=== PATIENT | female | born 1975 | race Caucasian/White ===

== ENCOUNTER 2022-02-01 14:51 | Outpatient (CLI) | payer BC, MEDICAID, SELFPAY ==
--- NOTE | 2022-02-01 15:09 | MM_ITS ---
WS: [id number] Bilateral screening 3D tomosynthesis digital mammogram, 02/01/2022 Clinical Data: SCREENING Comparison: 05/17/2016. Findings: The breast parenchymal pattern shows fibroglandular tissue No spiculated masses or clustered calcific ations are seen. There are no secondary signs of carcinoma. MM/[id number] Impression: 1. Negative bilateral mammogram unchanged. 2. Recommend annual screening mammograms. BIRADS: 1-Negative FOLLOW UP: 1 Year Follow-up The CAD credit rating checker was used.
== END 2022-02-01 14:52 | disposition home or self-care (01) ==
LOC: RAD 14:58
PROVIDERS: PCP Family Medicine; Visit Provider Family Medicine
DX: Z12.31 Encounter for screening mammogram for malignant neoplasm of breast (principal)
CPT/HCPCS: 77063; 77067

== ENCOUNTER 2022-03-11 15:49 | Outpatient (CLI) | payer BC, MEDICAID, SELFPAY ==
--- NOTE | 2022-03-11 16:10 | XR_ITS ---
WS: [id number] Exam: XR lumbar spine f/e only [id number] Date/Time of Exam: 03/11/2022 4:10 PM Reason For Exam: VERTEBROGENIC LOW BACK PAIN Comparison 11/24/2014. Flexion and extension views show no evidence of subluxation or instability. Disc spaces are preserved . Posterior elements are intact. Mild spondylosis. XR/XR lumbar spine f/e only [id number] IMPRESSION: 1. No fracture or instability identified.
== END 2022-03-11 15:50 | disposition home or self-care (01) ==
LOC: RAD 15:55
PROVIDERS: PCP Family Medicine; Visit Provider Nurse Practitioner
DX: M54.51 Vertebrogenic low back pain (principal)
CPT/HCPCS: 72120

== ENCOUNTER 2022-03-26 09:46 | Outpatient (CLI) | payer BC, MEDICAID, SELFPAY ==
--- NOTE | 2022-03-26 | XR_ITS ---
WS: [id number] Exam: XR shoulder RT min 2V* [id number] Date/Time of Exam: 03/26/2022 12:00 AM Reason For Exam: RT SHOULDER PAIN The projections of the shoulder reveal no fractures, anomalies, soft tissue swelling, or calcificatio ns. There is normal bony alignment. No irregularity of the bony architecture is noted. XR/XR shoulder RT min 2V* [id number] IMPRESSION: Negative right shoulder.
--- NOTE | 2022-03-26 | XR_ITS ---
WS: [email or web address] Exam: XR cervical spine 4-5V [id number] Date/Time of Exam: 03/26/2022 12:00 AM Reason For Exam: RT SHOULDER PAIN GETTING WORSE X 4 MONTHS No fracture or dislocation noted. No flexion or extension instability. Normal paraspinal soft tissues . Disc spaces are preserved. The odontoid is intact. Normal posterior elements. XR/XR cervical spine 4-5V [id number] IMPRESSION: 1. Normal cervical spine study.
== END 2022-03-26 09:47 | disposition home or self-care (01) ==
LOC: RADOUTREAD 03-27 09:51
PROVIDERS: PCP Family Medicine; Visit Provider Family Medicine
DX: M54.12 Radiculopathy, cervical region (principal); M25.511 Pain in right shoulder
CPT/HCPCS: 72050; 73030

== ENCOUNTER 2022-05-09 19:25 | Emergency (ER) | payer BC, MEDICAID, SELFPAY ==
[2022-05-09 20:16] VITALS: PULSE 79; RESP 20; TEMP 37.2; O2SAT 99; BMI 43.7
[2022-05-09 21:42] LABS: Add Urine Culture? Yes; Add Urine Microscopic? YES; Bacteria Urine 4+ /hpf; Bilirubin Urine Neg (Negative); Blood Urine 3+ (Negative); Glucose Urine UA Norm (Normal); Ketones Urine Negative (Negative); Leukocyte Esterase Urine 2+ (Negative); Mucus Urine 1+ /hpf; Nitrate Urine Positive (Negative); Protein Urine 3+ (Negative); RBC Urine TOO NUMEROUS TO CNT /hpf (0-2); Squamous Epithelial Cell Urine 0-4 /hpf (0-5); Urine Appearance Cloudy (CLEAR); Urine Color Red (Yellow); Urobilinogen Urine Norm (Negative); WBC Urine TOO NUMEROUS TO CNT /hpf (0-5); pH Urine 6 (5-7)
[2022-05-09 21:48] LABS: Basophils # 0.1 10^3/uL (0.0-0.1); Basophils % 0.4 %; Eosinophils % 0.2 %; Hematocrit 42.1 % (37.0-47.0); Hemoglobin 14.5 g/dL (11.5-15.3); Lymphocytes # 0.9 10^3/uL (0.8-4.8); Lymphocytes % 7.2 %; Mean Corpuscular HGB Conc 34.4 g/dL (30.0-36.0); Mean Corpuscular Hemoglobin 29.6 pg (28.0-34.0); Mean Corpuscular Volume 85.9 fl (81-99); Mean Platelet Volume 10.6 fL (7.4-10.4); Monocytes # 0.5 10^3/uL (0.2-0.9); Monocytes % 4.4 %; Neutrophils # 10.77 10^3/uL (1.8-7.7); Neutrophils % 87.3 %; Nucleated Red Blood Cells % 0 %; Platelet Count 241 10^3/cmm (130-400); Red Cell Distribution Width 12.8 % (12.1-15.1); White Blood Count 12.3 10^3/uL (4.0-10.0)
[2022-05-09 22:12] LABS: Alanine Aminotransferase 9 U/L (0-33); Albumin Level 4.6 g/dL (3.5-5.2); Alkaline Phosphatase 55 IU/L (35-105); Anion Gap 15.1 (5-19); Aspartate Amino Transferase 10 U/L (0-32); Blood Urea Nitrogen 11 mg/dL (6-20); Calcium 9.7 mg/dL (8.5-10.5); Carbon Dioxide 24 mmol/L (22-29); Chloride 100 mmol/L (98-107); Glomerular Filtration Rate 90.9 mL/min (90-130); Glucose 118 mg/dL (65-115); Lipase 24 U/L (13-60); Osmolality Calculated 280 mOsm/kg (285-295); Potassium 4.1 mmol/L (3.5-5.1); Sodium 135 mmol/L (136-145); Total Bilirubin 0.5 mg/dL (0.15-1.2); Total Protein 7.6 g/dL (6.6-8.7)
--- NOTE | 2022-05-09 23:27 | ED_ITS ---
HPI - Female Genitourinary General: Chief complaint: Urogenital-Female Stated complaint: abd/back pain Time Seen by Provider: 05/09/22 23:26 History of Present Illness: Ms. Mccormick is a 46-year-old lady with history of UTIs presenting to the emergency department due to concern over UTI. She reports onset of symptoms a few days ago. Initially she noted an aching back with right greater than left as well as some dysuria. She developed hematuria which has not had before as well as nausea and vomiting. Overall course of symptoms has worsened. Intensity is moderate. No fevers. No vaginal bleeding or discharge. No other specific changes in health, exacerbating, or alleviating factors identified. Onset (ago): day(s) Location of symptoms: low back and flank Severity: moderate Quality of pain: aching Urinary symptoms: Hematuria Review of Systems General: Reports: 10 or more systems reviewed and unremarkable except in HPI and below PFSH ED PFSH: Medical History (Updated 05/21/22 @ 21:53 by Chun Navas MD) No significant past medical history Surgical History (Updated 05/21/22 @ 21:53 by Chun Navas MD) No significant past surgical history Family History (Updated 05/21/22 @ 21:53 by Chun Navas MD) Denies family history of Clotting disorder Bleeding disorder Physical Exam Const: COMMON NORMALS: alert GENERAL APPEARANCE: cooperative and well developed HENMT: COMMON NORMALS: normocephalic and atraumatic HEAD & SCALP: nor mocephalic and atraumatic Eye: COMMON NORMALS: conjunctivae normal CONJUNCTIVA: Yes conjunctivae normal SCLERA: sclerae normal Neck/C-Spine: COMMON NORMALS: supple GENERAL: Yes trachea midline Resp: COMMON NORMALS: normal respiratory effort EFFORT & INSPECTION: Yes able to speak in complete sentences Cardio: COMMON NORMALS: regular rate and regular rhythm RATE: regular rate RHYTHM: regular rhythm GI: COMMON NORMALS: Soft to palpation PALPATION: Yes Soft to palpation, Yes Tenderness to palpation present (GI), No Guarding due to palpation present (GI) and No Rigid due to palpation : BLADDER/KIDNEY EXAM: Yes CVA tenderness Back/Pelvis: GENERAL BACK: Yes CVA tenderness Extremity: GENERAL: Yes normal exam except as noted and No edema Neuro: COMMON NORMALS: moves all extremities SENSORIUM/ORIENTATION: Yes alert and No Orientation impaired Psych: COMMON NORMALS: mental status grossly normal and Normal thought process present THOUGHT PROCESS: Normal thought process present Course ED course: - Patient was seen and evaluated by me at bedside - Patient placed on cardiac monitors, IV access obtained - Initial evaluation notable for exam as above - Labs personally interpreted by me - Fluids, analgesia, and antiemetic given - Labs notable for mild leukocytosis, normal hemoglobin. Mild evidence of dehydration or metabolic panel. Urinalysis concern for urinary tract infection with hematuria. - Imaging notable for no evidence of obstructing kidney stone, there is mid to distal ureteral patient is consistent with mild urethritis in addition to likely cystitis. -Antibiotic ordered - Upon serial reexamination after treatment the patient was improved - Based on patient history, evaluation, and testing as interpreted the most likely cause of the patient's condition is UTI with hematuria - The results of ED evaluation were discussed with the patient including prescriptions and/or symptomatic cares (if applicable) including appropriate and responsible use, followup plan, and return precautions. The patient verbalized understanding and felt safe for discharge. - Patient discharged in satisfactory condition. Note: Click bubbles or prepopulated messina in note writing are used for assistance with data collection and billing and are inherently more limited than narrative and other text portions of this note. Please use narrative for additional clinical history and defer to narrative/free test for any case of contradictory information. If information appears in only free text or click bubble it should be considered present or absent as reported. Please contact note quality analyst/technical writer for clarifications of clinical information or contradictory information. MDM is a brief summary, contradictory or erroneous seeming information should be clarified and full note should be reviewed. Vital Signs: Vital signs: Vital Signs Temperature 98.9 F 05/09/22 20:16 Pulse Rate 79 05/10/22 02:52 Respiratory Rate 16 05/10/22 02:52 Blood Pressure 116/73 05/10/22 02:52 Pulse Oximetry 96 05/10/22 02:52 MDM - Female Medical Decision Making 46-year-old lady presenting with concern over UTI. Findings consistent with UTI and ureteritis. Patient reports symptoms improved with treatment. Antibiotics given. Given nontoxic appearance and ability to tolerate p.o. intake. patient satisfactory for outpatient management with strict return cautions. Medical Records I reviewed the patient's medical records. Lab Data I reviewed the patient's lab results. : 05/09/22 21:36 07/21/22 21:36 Radiology Impressions Abdomen/Pelvis CT 05/09/22 23:48 IMPRESSION: 1. Nonobstructing 3 5 mm right renal calculus 2. Haziness seen adjacent to the mid and distal ureters bilaterally could represent mild ureteritis. 3. Hazy opacity seen adjacent to the urinary bladder may represent cystitis as well. Laboratory Results WBC 12.3 10^3/uL (4.0-10.0) H 05/09/22 21:36 RBC 4.90 10^6/uL (4.1-5.3) 05/09/22 21:36 Hgb 14.5 g/dL (11.5-15.3) 05/09/22 21:36 Hct 42.1 % (37.0-47.0) 05/09/22 21:36 MCV 85.9 fl (81-99) 05/09/22 21:36 MCH 29.6 pg (28.0-34.0) 05/09/22 21:36 MCHC 34.4 g/dL (30.0-36.0) 05/09/22 21:36 RDW 12.8 % (12.1-15.1) 05/09/22 21:36 Plt Count 241 10^3/cmm (130-400) 05/09/22 21:36 MPV 10.6 fL (7.4-10.4) H 05/09/22 21:36 Neut % (Auto) 87.3 % 05/09/22 21:36 Lymph % (Auto) 7.2 % 05/09/22 21:36 Petroleum % (Auto) 4.4 % 05/09/22 21:36 Eos % (Auto) 0.2 % 05/09/22 21:36 Baso % (Auto) 0.4 % 05/09/22 21:36 Neut # (Auto) 10.77 10^3/uL (1.8-7.7) H 05/09/22 21:36 Lymph # (Auto) 0.9 10^3/uL (0.8-4.8) 05/09/22 21:36 Petroleum # (Auto) 0.5 10^3/uL (0.2-0.9) 05/09/22 21:36 Eos # (Auto) 0.0 10^3/uL (0.0-0.8) 05/09/22 21:36 Baso # (Auto) 0.1 10^3/uL (0.0-0.1) 05/09/22 21:36 Nucleated RBC % (auto) 0 % 05/09/22 21:36 Nucleated RBCs # 0.0 /100WBC 05/09/22 21:36 Sodium 135 mmol/L (136-145) L 05/09/22 21:36 Potassium 4.1 mmol/L (3.5-5.1) 05/09/22 21:36 Chloride 100 mmol/L (98-107) 05/09/22 21:36 Carbon Dioxide 24 mmol/L (22-29) 05/09/22 21:36 Anion Gap 15.1 (5-19) 05/09/22 21:36 BUN 11 mg/dL (6-20) 05/09/22 21:36 Creatinine 0.7 mg/dL (0.5-0.9) 05/09/22 21:36 GFR Calculation 90.9 mL/min (90-130) 05/09/22 21:36 Glucose 118 mg/dL (65-115) H 05/09/22 21:36 Calculated Osmolality 280 mOsm/kg (285-295) L 05/09/22 21:36 Calcium 9.7 mg/dL (8.5-10.5) 05/09/22 21:36 Total Bilirubin 0.5 mg/dL (0.15-1.2) 05/09/22 21:36 AST 10 U/L (0-32) 05/09/22 21:36 ALT 9 U/L (0-33) 05/09/22 21:36 Alkaline Phosphatase 55 IU/L (35-105) 05/09/22 21:36 Total Protein 7.6 g/dL (6.6-8.7) 05/09/22 21:36 Albumin 4.6 g/dL (3.5-5.2) 05/09/22 21:36 Globulin 3.0 g/dL (1.3-4.6) 05/09/22 21:36 Lipase 24 U/L (13-60) 05/09/22 21:36 Urine Color Red (Yellow) 05/09/22 21:00 Urine Appearance Cloudy (CLEAR) 05/09/22 21:00 Urine pH 6 (5-7) 05/09/22 21:00 Ur Specific [place] 1.010 (1.005-1.030) 05/09/22 21:00 Urine Protein 3+ (Negative) H 05/09/22 21:00 Urine Glucose (UA) Norm (Normal) 05/09/22 21:00 Urine Ketones Negative (Negative) 05/09/22 21:00 Urine Blood 3+ (Negative) H 05/09/22 21:00 Urine Nitrate Positive (Negative) H 05/09/22 21:00 Urine Bilirubin Neg (Negative) 05/09/22 21:00 Urine Urobilinogen Norm mg/dL (Negative) 05/09/22 21:00 Ur Leukocyte Esterase 2+ (Negative) H 05/09/22 21:00 Urine RBC Too numerous to cnt /hpf (0-2) H 05/09/22 21:00 Urine WBC Too numerous to cnt /hpf (0-5) H 05/09/22 21:00 Ur Squamous Epith Cells 0-4 /hpf (0-5) H 05/09/22 21:00 Amorphous Sediment Not Reportable 05/09/22 21:00 Urine Bacteria 4+ /hpf (NONE) H 05/09/22 21:00 Urine Mucus 1+ /hpf 05/09/22 21:00 Urine HCG, Qual Negative (Negative) 05/09/22 21:00 Discharge Plan Discharge Patient Disposition: Home Clinical Impression: Urinary tract infection, Nausea and vomiting, Hematuria Condition: Stable Prescriptions: New ondansetron 4 mg tablet,disintegrating 4 mg PO Q8H PRN (Reason: nausea and vomiting) Qty: 15 0RF ciprofloxacin HCl 500 mg tablet 500 mg PO Q12H Qty: 20 0RF Discharge Orders: Discharge ED (Routine); Ordered 05/10/22 Ordered By: Chun Navas Referrals: Félix Romano MD [Primary Care Provider] - Discharge Diet: Usual diet Discharge Activity: Increase activity as tolerated Patient Instructions: Urinary Tract Infection in Women (ED), Hematuria (ED) Activity Restrictions/Additional Instructions: Thank you for visiting the emergency department. You were seen and evaluated for flank pain, nausea with vomiting, and urinary symptoms. You are found to simms ve a urinary tract infection which likely explain symptoms. This will be treated with antibiotics. Please follow-up with your primary care provider. Return to the emergency department for worsening symptoms, fevers, uncontrolled pain, inability to tolerate oral intake, or anything else that you are concerned about a feel needs emergency department evaluation. Coding Level of Care Code ED Dog Control Officer for Rogelio James Exam Comprehensive
--- NOTE | 2022-05-09 23:48 | CTR_ITS ---
PROCEDURE INFORMATION: Exam: CT Abdomen And Pelvis Without Contrast Exam date and time: 05/10/2022 12:13 AM Age: 46 years old Clinical indication: Abdominal pain; Prior surgery; Surgery type: Hysterectomy. Appy. Patient HX: C/O bilat flank pain with hematuria. ; Additional info: Hematuria, UTI, n/v, flank pain TECHNIQUE: Imaging protocol: Computed tomography of the abdomen and pelvis without contrast. Radiation optimization: All CT scans at this facility use at least one of these dose optimization techniques: automated exposure control; mA and/or kV adjustment per patient size (includes targeted exams where dose is matched to clinical indication); or iterative reconstruction. COMPARISON: CT Abdomen/[place] [id number] 08/30/2018 6:20 PM RADIATION DOSE METRICS: Total DLP (mGy-cm): 1295.14 FINDINGS: Liver: Normal. No mass. Gallbladder and bile ducts: Normal. No calcified stones. No ductal dilation. Pancreas: Normal. No ductal dilation. Spleen: Normal. No splenomegaly. Adrenal glands: Normal. No mass. Kidneys and ureters: There is a 3.5 mm nonobstructing calculus seen in the upper pole of the right kidney. There is some subtle haziness seen adjacent to the mid and distal ureters bilaterally, findings that could represent mild bilateral ureteritis. Stomach and bowel: Unremarkable. No obstruction. No mucosal thickening. Appendix: Status post appendectomy. Intraperitoneal space: Unremarkable. No free air. No significant fluid collection. Vasculature: Unremarkable. No abdominal aortic aneurysm. Lymph nodes: Unremarkable. No enlarged lymph nodes. Urinary bladder: There are some hazy opacities adjacent to the serosal margin of the bladder, findings could represent mild inflammatory changes and cystitis as well. Reproductive: Status post hysterectomy. Bones/joints: Unremarkable. No acute fracture. Soft tissues: Unremarkable. CT/CT kidney stone [id number] IMPRESSION: 1. Nonobstructing 3 5 mm right renal calculus 2. Haziness seen adjacent to the mid and distal ureters bilaterally could represent mild ureteritis. 3. Hazy opacity seen adjacent to the urinary bladder may represent cystitis as well.
[2022-05-10] MEDS: ondansetron 2 mg/ML SDV 2 mL 4 MG IVP (00:01)
[2022-05-10] MEDS: sodium chloride 0.9% 1,000 ML 999 ML IV (00:02)
[2022-05-10] MEDS: cefTRIAXone 1,000 MG in sodium chloride 0.9% (plus) 50 ML 100 MG IV (00:05)
[2022-05-10] MEDS: ketorolac 30 mg/mL INJ 15 MG IVP (01:30)
[2022-05-10 02:52] VITALS: BP 116/73; PULSE 79; RESP 16; O2SAT 96
== END 2022-05-10 02:53 | disposition home or self-care (01) ==
PROVIDERS: Emergency Medicine; Emergency Provider Emergency Medicine; PCP Family Medicine
DX: N39.0 Urinary tract infection, site not specified (principal); R31.9 Hematuria, unspecified; R11.2 Nausea with vomiting, unspecified
CPT/HCPCS: 36415; 74176; 80053; 81001; 81025; 83690; 85025; 87077; 87086; 87186; 96365; 96375; 99285; J0696; J1885; J2405; J7030

== ENCOUNTER 2023-02-14 14:34 | Outpatient (CLI) | payer BC, MEDICAID, SELFPAY ==
--- NOTE | 2023-02-14 14:51 | MM_ITS ---
WS: [id number] BILATERAL 3D TOMOSYNTHESIS DIGITAL SCREENING MAMMOGRAPHY WITH CAD CLINICAL INFORMATION: SCREENING HISTORY: Screening mammogram. No current complaints. COMPARISON: February 01, 2022 TECHNIQUE: Bilateral CC and MLO views. FINDINGS: The breasts are composed of heterogeneous fibroglandular density tissue, which can limit the detectio n of small underlying mass lesions. No suspicious mass, asymmetry, calcifications, or architectural d istortion. No evidence of malignancy. MM/[place] [id number] IMPRESSION: BI-RADS: 1-Negative FOLLOW UP: 1 Year Follow-up Recommend return to annual screening mammography.
== END 2023-02-14 14:35 | disposition home or self-care (01) ==
LOC: RAD 14:38
PROVIDERS: PCP Family Medicine; Visit Provider Family Medicine
DX: Z12.31 Encounter for screening mammogram for malignant neoplasm of breast (principal)
CPT/HCPCS: 77063; 77067

== ENCOUNTER 2023-06-05 20:42 | Emergency (ER) | payer BC, MEDICAID, SELFPAY ==
[2023-06-05 20:49] VITALS: BP 136/80; PULSE 104; RESP 18; TEMP 37.2; O2SAT 97; BMI 43.7
== END 2023-06-05 21:28 | disposition left against medical advice (07) ==
LOC: ER 20:51
PROVIDERS: Emergency Provider Family Medicine; PCP Family Medicine
DX: Z53.21 Procedure and treatment not carried out due to patient leaving prior to being seen by health care provider (principal)

== ENCOUNTER 2023-08-20 15:52 | Outpatient (CLI) | payer BC, MEDICAID, SELFPAY ==
--- NOTE | 2023-08-20 16:00 | MR_ITS ---
WS: [id number] MRI RIGHT ANKLE WITHOUT CONTRAST. COMPARISON: Radiographs 07/10/2023 Multiplanar, multisequence imaging is performed without contrast. The Achilles tendon is normal. There is no increased T2 signal or tear. No adjacent fluid. Retrocalca cesar bursa is normal. No edema in the fat pad. Plantar fascia is normal. No marrow edema or fractures. No osteochondral lesions. Peroneal tendons are normal. Flexor hallucis longus and flexor digitorum longus and the posterior tibial tendon are normal. Normal flexor tendons. Anterior and posterior talofibular ligaments are negative. Normal deltoid ligament. Subtalar joint i s negative. IMPRESSION: 1. Normal Achilles tendon. No tear or tendinopathy. 2. Negative RIGHT ankle.
== END 2023-08-20 15:53 | disposition home or self-care (01) ==
LOC: RAD 15:52
PROVIDERS: PCP Family Medicine; Visit Provider Podiatrist Foot & Ankle Surgery
DX: S86.011A Strain of right Achilles tendon, initial encounter (principal); X58.XXXA Exposure to other specified factors, initial encounter
CPT/HCPCS: 73721

== ENCOUNTER 2024-06-29 13:17 | Outpatient (CLI) | payer BC, MEDICAID, SELFPAY ==
--- NOTE | 2024-06-29 13:18 | MM_ITS ---
WS: [id number] BILATERAL 3D TOMOSYNTHESIS DIGITAL SCREENING MAMMOGRAPHY WITH CAD CLINICAL INFORMATION: SCREENING HISTORY: Screening mammogram. No current complaints. COMPARISON: 2022 TECHNIQUE: Bilateral CC and MLO views. FINDINGS: The breasts are composed of heterogeneous fibroglandular density tissue, which can limit the detectio n of small underlying mass lesions. No suspicious mass, asymmetry, calcifications, or architectural d istortion. No evidence of malignancy. MM/[place] [id number] IMPRESSION: DENSITY:The breasts are heterogeneously dense, which may obscure small masses. BI-RADS: 2 - Benign. FOLLOW UP: 1 Year Follow-up Recommend return to annual screening mammography.
== END 2024-06-29 13:18 | disposition home or self-care (01) ==
PROVIDERS: PCP Family Medicine; Visit Provider Family Medicine
DX: Z12.31 Encounter for screening mammogram for malignant neoplasm of breast (principal); R92.333 Mammographic heterogeneous density, bilateral breasts
CPT/HCPCS: 77063; 77067